=== PATIENT | female | born 1955 ===

== ENCOUNTER 2021-05-21 10:44 | Outpatient (CLI) | payer OTHER ==
[~2021-05-21 10:44] MED LIST: ENALAPRIL MALEA20 MG PO
== END 2021-05-21 15:06 | disposition home or self-care (01) ==
LOC: SONOGRAMA 10:44
PROVIDERS: ATTEND Pathology Anatomic Pathology & Clinical Pathology
DX: E04.1 Nontoxic single thyroid nodule (principal); D34 Benign neoplasm of thyroid gland; E07.89 Other specified disorders of thyroid